=== PATIENT | female | born 1980 | race Caucasian/White ===

== ENCOUNTER → 2016-09-16 | Outpatient (REF) | payer BC ==
[~2016-09-16] MED LIST: AMOX875T2 PO; BIRTH CONTROL PILL PO; CEFD300C PO; HYDR-3702 PO; METH4TAB27 PO
[2016-09-16 14:03] LABS: ALBUMIN 4.5 g/dL (3.4-5.0); ANION GAP 15.2 MEQ/L (3-15); CALCULATED IONIZED CALCIUM 3.6 mg/dL (3.8-4.6); TOTAL PROTEIN 9.1 g/dL (6.4-8.5)
== END ==
LOC: LAB 13:38
PROVIDERS: ATTEND Nurse Practitioner Family
DX: Z01.419 Encounter for gynecological examination (general) (routine) without abnormal findings (principal); F41.1 Generalized anxiety disorder
CPT/HCPCS: 80053; 84443

== ENCOUNTER → 2016-09-19 | Outpatient (CLI) | payer BC ==
--- NOTE | 2016-09-19 17:38 | Diagnostic Imaging Report ---
INDICATION: Palpable abnormality, per clinician, in the left breast. Family history of breast carcinoma with an aunt with breast cancer at the age of 27. EXAMINATION: Left breast sonogram, 09/19/2016. FINDINGS: Grayscale and color Doppler ultrasound imaging of the left breast was performed at the site of palpable concern. There does appear to be a focal area of increased heterogeneity with a hypoechoic lesion at 9 o'clock, near the retroareolar region, with increased blood flow noted. This measures 1.6 x 2.4 x 1.2 cm in size. It appears to correspond to the increased density seen in the retroareolar region of the breast mammographically with associated calcifications. IMPRESSION: Lesion described above has a suspicious appearance and biopsy is recommended. It could be performed with sonography or stereotactically given there are several calcifications in the more posterior aspect of the breast on the mammogram which require stereotactic-guided biopsy as well. Findings were discussed with the patient. Report will be called to the office of Rosy Dalton APRN on Thursday09/23/16. ACR BI-RADS Category 5: Highly suggestive of malignancy. Result letter will be mailed to the patient. Note: At least 10% of breast cancer is not imaged by mammography. Dictated by: Dictated on workstation # [id number]
--- NOTE | 2016-09-19 17:51 | Diagnostic Imaging Report ---
INDICATION: Palpable abnormality, left breast, by patient's doctor. Strong family history of breast carcinoma. EXAMINATION: Bilateral breast digital diagnostic mammogram with CAD, 09/19/2016. The current study was also evaluated with a Computer Aided Detection (CAD) system. COMPARISON: No priors available for comparison. FINDINGS: The breasts are heterogeneously dense. At the site of palpable concern on the left, there is an asymmetric density with associated calcifications. The corresponding sonogram of the area demonstrates a suspicious mass and biopsy is recommended an additional cluster of calcifications noted in the posterior aspect of the left breast was further evaluated with spot magnification imaging. This is also suspicious and best seen on the CC view. A stereotactic-guided biopsy of this cluster is recommended. It is less well-seen on the spot magnification MLO view but is likely just above the nipple line. These findings were discussed with the patient and biopsy of both areas was recommended. No definite suspicious masses or microcalcifications on the right. IMPRESSION: 1. Suspicious lesion in the anterior left breast with associated calcifications, biopsy recommended. 2. Cluster of calcifications in the posterior slightly inner aspect of the left breast also requires biopsy under stereotactic guidance. 3. No suspicious abnormality is noted on the right. However, if clinically warranted, and if the findings on the left do represent carcinoma after biopsy, consideration for MRI of both breasts may be warranted. Findings were discussed with the patient. Report will be called to the office of Rosy Dalton APRN on Thursday09/23/16. Dictated by: Dictated on workstation # [id number]
== END ==
LOC: RAD 09:00
PROVIDERS: ATTEND Nurse Practitioner Family
DX: N63 Unspecified lump in breast (principal); Z80.3 Family history of malignant neoplasm of breast
CPT/HCPCS: 76642; G0204